=== PATIENT | male | born 1965 | race Caucasian/White ===

== ENCOUNTER 2017-06-22 17:14 | Emergency (ER) | payer OTHER ==
[~2017-06-22] VITALS: Ht 175.3 cm; Wt 100.0 kg
[~2017-06-22 17:14] MED LIST: ALBU18HF INH; ALPR2TAB6 PO; CYCL10TA9 PO; FERR325T40 PO; GABA800T2 PO; LAMO25TA2 PO; ONDA4TAB9 PO; OXYC20TA4 PO; PANT40TA2 PO; PHEN100C11 PO; PRAZ2CAP2 PO; PROM25SU47 RECTAL; PROZ20 PO; TIOT18CA3 IH; ZIPR80CA2 PO; oxycodone PO
[2017-06-22 17:40] VITALS: BP 123/75; PULSE 86; RESP 16; O2SAT 97
--- NOTE | 2017-06-22 18:42 | ED.REPORT ---
HPI-Extremity Problem Lower Date of Service Jun 22, 2017 ED Provider:Leopoldo Hernandez MD The pt is a 52 y/o male w/ a hx of bipolar disorder, HTN, and depression, presenting to the ED due to bilateral great toe swelling onset 5 days ago. He reports the L side being worse than the R and feels like the nails are going to pop off. He has tried Aleve, ice, and soaking them and nothing has decreased the pain or swelling. They do not itch. The pt reports wearing too small of shoes but no other trauma. The pt also reports having a seizure yesterday and would like a refill of his Dilantin medication. Nursing Notes Stated Complaint: BIG TOE INFECTION Chief Complaint: Bilateral great toe pain Nursing Notes Reviewed: Yes ([employer], [employer] reconciled) Allergies: Coded Allergies: Penicillins (Verified Allergy, Severe, Anaphylaxis, 07/05/16) aspirin (Verified Allergy, Severe, Anaphylaxis, 07/05/16) bupropion HCl (Verified Allergy, Severe, Seizures, 07/05/16) haloperidol (Verified Allergy, Severe, Seizures, 07/05/16) ibuprofen (Verified Allergy, Severe, contraindicated with pancreatitis, ) tramadol (Verified Allergy, Severe, Seizures, 07/05/16) prednisone (Verified Allergy, Intermediate, swelling, 06/22/17) NSAIDS (Non-Steroidal Anti-Inflamma (Verified Adverse Reaction, Severe, Contraindicated with pancreatitis, 07/05/16) acetaminophen (Verified Adverse Reaction, Severe, Contraindicated, 07/05/16 ) Scheduled ([oxycodone]) 5 MG PO Q 4hrs Ferrous Sulfate (Iron) 325 Mg Tablet 325 MG PO BID Fluoxetine (Prozac) 20 Mg Cap 60 MG PO DAILY Gabapentin (Gabapentin) 800 Mg Tablet 800 MG PO TID Lamotrigine (Lamictal) 25 Mg Tablet 50 MG PO BID Omeprazole (Omeprazole) 20 Mg Capsule.dr 20 MG PO DAILY Pantoprazole DR (Protonix) 40 Mg Tablet 40 MG PO BID Phenytoin Sodium ER (Dilantin) 100 Mg Capsule 300 MG PO BID Phenytoin Sodium Extended (Phenytoin Sodium Extended) 100 Mg Capsule 300 MG PO BID Prazosin (Prazosin) 2 Mg Capsule 2 MG PO HS Tiotropium [place] (Spiriva) 18 Mcg Cap.w.dev 18 MCG IH DAILY Ziprasidone (Geodon) 80 Mg Capsule 80 MG PO BID Scheduled PRN Albuterol Sulfate (Ventolin HFA Inhaler) 200 Puff/18 Gm Inhaler 2 PUFF INH Q4 PRN PRN For Wheezing Alprazolam (Alprazolam) 2 Mg Tablet 2 MG PO Q8HR PRN PRN For Anxiety Cyclobenzaprine (Cyclobenzaprine) 10 Mg Tablet 10 MG PO TID PRN PRN For Pain Ondansetron ODT (Zofran ODT) 4 Mg Tablet 4 MG PO Q4H PRN PRN For Nausea Promethazine Supp (Promethazine Supp) 25 Mg Supp 25 MG RECTAL Q4HR PRN PRN For Nausea oxyCODONE (oxyCODONE) 20 Mg Tablet 20 MG PO BID PRN PRN For Pain oxyCODONE (oxyCODONE) 5 Mg Tablet 5 MG PO TID PRN PRN For Pain General Time Seen by MD: 18:40 Chief Complaint Other (bilateral great toe pain ) Hx Obtained From: Patient Arrived By: Walk-in Onset Occurred: 5 days ago Symptom Duration: Since onset Recent Healthcare: No recent doctor visit, No recent hospitalization Similar Sx Previous: No Past Medical History Past Medical History Anemia Multiple psychiatric disorders: bipolar, possible schizophrenia, antisocial personality disorder, anxiety, PTSD Several suicide attempts Recurrent pancreatitis with alcohol abuse Hepatitis C Chronic low back pain (chonic oxycodone) Sleep apnea Seizures Reports: Asthma, COPD, GERD, Hypertension, Mental illness Reports: Depression, Migraines, Seizure disorder Past Surgical History Right hip surgery Right shoulder surgery Spincterotomy Low back surgery Family History Noncontributory Smoking History Never Smoker Social History Alcohol Use: In recovery Drug Use: THC Other Social History: Homeless Ambulatory Status Independent Review of Systems Bilat great toe pain and swelling Skin: Denies Itching Complete sys rev & neg: except as marked. Physical Exam Initial Vital Signs Vital Signs (First) Date Time Temp Pulse Resp B/P Pulse Ox O2 Delivery O2 Flow Rate FiO2 06/22/17 17:40 36.9 86 16 123/75 97 Room Air Initial VS: Reviewed, Vital signs normal General/Constitutional: Well-developed, Well-nourished Head / Eyes: Atraumatic, Normocephalic, PERRL ENT: Mucous membranes moist, Conjunctiva normal, No scleral icterus Neck: Supple, Non-tender, Full range of motion Respiratory: Breath sounds normal, Clear to auscultation, No respiratory distress Cardiovascular: Regular rate & rhythm, Heart sounds normal, Intact distal pulses Upper Extremities: Vascular intact, Neuro intact, No swelling, No tenderness Neurologic: Alert, Oriented, Nonfocal Psychiatric: Mood/affect normal, Behavior normal, Normal thought content Lower Extremity / Pelvis / MS: Full range of motion, No deformity Ankle / Foot: No deformity, Neurologic intact, Vascular intact Ecchymosis w/ trace swelling, w/o erythema, warmth, or signs of cellulitis in bilateral great toes No subungual hematoma No signs of gout Interpretation & Diagnostics Lab Results Interpretation Result Diagram: 06/22/17191406/22/171914 Test 06/22/17 19:15 White Blood Count 5.5th/mm3 (3.8-10.1) Red Blood Count 4.58mil/mm3 (4.40-5.80) Hemoglobin 14.3g/dL (13.8-17.2) Hematocrit 40.3% (41.0-50.0) Mean Corpuscular Volume 88.0fL (81-100) Mean Corpuscular Hemoglobin 31.2pg (27.0-35.0) Mean Corpuscular Hemoglobin Concent 35.5% (32.0-37.0) Red Cell Distribution Width 12.8% (12.3-15.4) Platelet Count 93bil/L (150-400) Neutrophils (%) (Auto) 53.1% (40-74) Lymphocytes (%) (Auto) 26.6% (14-46) Monocytes (%) (Auto) 12.5% (4-12) Eosinophils (%) (Auto) 6.9% (0-5) Basophils (%) (Auto) 0.5% (0-3) Sodium Level 141mEq/L (134-144) Potassium Level 4.4mEq/L (3.5-5.2) Chloride Level 102mEq/L (97-108) Carbon Dioxide Level 22mmol/L (18-29) Blood Urea Nitrogen 8mg/dL (6-24) Creatinine 0.66mg/dL (0.76-1.27) Estimat Glomerular Filtration Rate 135mL/min (>59) Glucose Level 85mg/dL (60-99) Calcium Level 9.2mg/dL (8.5-10.1) Magnesium Level 2.1mg/dL (1.6-2.6) Total Bilirubin 0.2mg/dL (0.0-1.2) Aspartate Amino Transf (AST/SGOT) 37U/L (0-50) Alanine Aminotransferase (ALT/SGPT) 41U/L (0-44) Alkaline Phosphatase 76U/L (25-150) Total Protein 7.2g/dL (6.4-8.4) Albumin 4.1g/dL (3.4-5.0) Lipase 146U/L (13-60) Phenytoin (Dilantin) Level < 0.8uG/mL (10.0-20.0) Lab Results Interpretation: CBC mild non-specific thrombocytopenia CMP normal, lipase marginally elevated X-Ray Interpretation Xray Interpretation: IMPRESSION: No bony abnormality is seen. Soft tissue swelling around the plantar aspect of the distal phalanx of the left great toe is present. Dictated by: Khalif Nguyen M.D. on 06/22/2017 at 19:41 Approved by: Khalif Nguyen M.D. on 06/22/2017 at 19:41 Study Performed: L toe Interpretation / Wet Read by: Interpret - Radiologist Xray Interpretation: IMPRESSION: Other than minimal osteoarthritic change of the metatarsophalangeal joint of the right great toe there is no abnormality seen. Dictated by: Khalif Nguyen M.D. on 06/22/2017 at 19:39 Approved by: Khalif Nguyen M.D. on 06/22/2017 at 19:40 Study Performed: R toe Interpretation / Wet Read by: Interpret - Radiologist Re-Eval/Medical Decision Med Decision/Clinical Course This is a 52-year-old male presents complaining of bilateral great toe pain. She has recently been in senior living was released as footwear was too tight to small, in over the past few days he has stoma walking and has developed great toe pain on each foot. Him in. He denies fevers chills or redness, there is had trace swelling of the toe. He has no prior history of gout. He is also requesting a med refill of his omeprazole and Dilantin which he has been under dosing because he is close to out. He reports normally taking 300 mg twice, he did have a seizure yesterday-but is not aware of any other specific trauma to the toes. On exam there is a small amount of ecchymosis at the base of each great toe nail although there is no subungual hematoma, there is normal range of motion, there is no redness or induration or signs of infection or abscess. There is no involvement of the metatarsal joint suspect gout or pseudogout. No findings of a septic joint. His foot exams otherwise normal bilaterally. Plain radiographs are negative. Nurses initiated labs were normal except for nonspecific thrombocytopenia. She received a single dose of oxycodone as he has an allergy profile limited alternatives. He does report he tolerates Naprosyn and took some before him. He has been discharged with a few oxycodone sparingly, continue Naprosyn, I written a refill for his Dilantin and omeprazole. Recommended follow-up. At this point I suspect contusions to the great toes from the improperly fitting footwear that he was using previously, I am not finding evidence of a more dangerous etiologies this time. Routine return precautions reviewed, patient's discharge ambulatory in stable condition Source of Hx: Old records Re-Evaluation/Progress : Time of Eval: 20:18 Re-Evaluation/Progress Note: Pt rechecked. Informed pt of plan for treatment. Pt understands and agrees with plan for treatment. F/U instructions and RTER warnings given. All questions addressed. Differential Diagnosis: Positive: Contusion, Negative: Abrasion, Achilles tendon rupture, Ankle dislocation, Cellulitis, Compartment syndrome, Fracture, Laceration, Nail bed laceration, Plantar warts, Puncture wound, Venous thromboembolism Counseled Regarding: Diagnosis, Lab results, Need for follow-up, When/why to return to ED Discharge & Departure Impression: Primary Impression: Contusion of toe of left foot Encounter type: initial encounter Toe: great toe Damage to nail status: with damage Qualified Code: S90.212A - Contusion of left great toe with damage to nail, initial encounter Additional Impressions: Contusion of toe of right foot Encounter type: initial encounter Toe: great toe Damage to nail status: without damage Qualified Code: S90.111A - Contusion of right great toe without damage to nail, initial encounter Medication refill Disposition: Home Discharge Condition All VS Reviewed: Yes Condition: Stable Additional Instructions: 1. I suspect the pain in your toes is from contusions from the footwear that was too small. I do not appreciate any visible signs of infection on your exams , and your blood tests were normal. No fractures were evident on x-ray. 2. Continue naprosyn. 3. You can take a short course of oxycodone to help with the pain over the next 1-2 days, but symptoms should be improving with time. NOTE: This medication contains a narcotic and causes drowsiness, no driving for at least 4 hours after taking. 4. Activities as tolerated. 5. IF you need a primary care provider, follow up with 6. I have written a refill of your dilantin at the 300mg twice a day dosing you report taking. Referrals: [facility] (PCP) [facility] Scribe Attestation Portions of this note were transcribed by Dmitri Ballard. I, Dr. Hernandez personally performed the history, physical exam and medical decision-making; I reviewed and confirmed the accuracy of the information in the transcribed note. copies to: [facility] Leopoldo Hernandez MD Jun 22, 2017 18:42 Dmitri Ballard Jun 22, 2017 20:21
--- NOTE | 2017-06-22 19:43 | DRSVH ---
PROCEDURE: X-RAY TOESS, TWO VIEWS INDICATIONS: pain TECHNIQUE: 3 views of the right great toe(s) acquired. COMPARISON: None. FINDINGS: Bones: No fractures or dislocations. No suspicious bony lesions. Soft tissues: No suspicious soft tissue densities. No abnormal soft tissue calcifications are seen. IMPRESSION: Other than minimal osteoarthritic change of the metatarsophalangeal joint of the right gr eat toe there is no abnormality seen. Dictated by: Khalif Nguyen M.D. on 06/22/2017 at 19:39 Approved by: Khalif Nguyen M.D. on 06/22/2017 at 19:40
--- NOTE | 2017-06-22 19:44 | DRSVH ---
PROCEDURE: X-RAY TOES, TWO VIEWS INDICATIONS: pain TECHNIQUE: 3 views of the left first toe(s) acquired. COMPARISON: None. FINDINGS: Bones: No fractures or dislocations. No suspicious bony lesions. Soft tissues: No suspicious soft tissue densities. Prominent soft tissue swelling is seen around th e distal phalanx of the left great toe. IMPRESSION: No bony abnormality is seen. Soft tissue swelling around the plantar aspect of the distal phalanx of the left great toe is present. Dictated by: Khalif Nguyen M.D. on 06/22/2017 at 19:41 Approved by: Khalif Nguyen M.D. on 06/22/2017 at 19:41
[2017-06-22 19:58] LABS: BASOPHILS % (AUTO) 0.5 % (0-3); EOSINOPHILS % (AUTO) 6.9 % (0-5); MONOCYTES % (AUTO) 12.5 % (4-12); Mean Corpuscular Hemoglobin 31.2 pg (27.0-35.0); NEUTROPHILS % (AUTO) 53.1 % (40-74); Platelet Count 93 bil/L (150-400)
[2017-06-22 20:12] LABS: Magnesium 2.1 mg/dL (1.6-2.6)
[2017-06-22] MEDS ORDERED: OXYC-530 PO (20:16)
[2017-06-22] MEDS ORDERED: PHN100C PO (20:16)
[2017-06-22] MEDS ORDERED: OMEP20CA11 PO (20:20)
[2017-06-22 20:40] VITALS: BP 127/76; PULSE 76; RESP 16; O2SAT 95
== END 2017-06-22 20:41 | disposition home or self-care (01) ==
LOC: SED 17:14
DX: S90.212A Contusion of left great toe with damage to nail, initial encounter (principal); S90.111A Contusion of right great toe without damage to nail, initial encounter; X58.XXXA Exposure to other specified factors, initial encounter; Y93.89 Activity, other specified; Y92.89 Other specified places as the place of occurrence of the external cause; Y99.8 Other external cause status; I10 Essential (primary) hypertension; K21.9 Gastro-esophageal reflux disease without esophagitis; J44.9 Chronic obstructive pulmonary disease, unspecified; F41.8 Other specified anxiety disorders; G43.909 Migraine, unspecified, not intractable, without status migrainosus; F31.9 Bipolar disorder, unspecified; Z76.0 Encounter for issue of repeat prescription; Z98.890 Other specified postprocedural states; Z59.0 Homelessness; Z88.0 Allergy status to penicillin; Z88.5 Allergy status to narcotic agent; Z88.6 Allergy status to analgesic agent; Z88.8 Allergy status to other drugs, medicaments and biological substances

== ENCOUNTER 2017-07-11 11:14 | Emergency (ER) | payer OTHER ==
[~2017-07-11] VITALS: Ht 175.3 cm; Wt 101.4 kg
[~2017-07-11 11:14] MED LIST changes: +OMEP20CA11 PO; +OXYC5TAB72 PO; +PHN100C PO
[2017-07-11 11:17] VITALS: BP 141/89; PULSE 81; RESP 16; O2SAT 97
--- NOTE | 2017-07-11 11:25 | ED.REPORT ---
HPI-Extremity Problem Lower Date of Service Jul 11, 2017 ED Provider: Tonja Esposito History of Present Illness: appointment with nayeli kaba on 07/23/2017. Saw a week ago, worse since then. doing espom salts, ice and heat. left great toe. denies dm. recently from doc. Staying in DOC housing. requesting refill of pain medications Nursing Notes Stated Complaint: POSSIBLE TOE INFECTION/LEFT FOOT Chief Complaint: Extremity Trauma Nursing Notes Reviewed: Yes Allergies: Coded Allergies: Penicillins (Verified Allergy, Severe, Anaphylaxis, 07/05/16) aspirin (Verified Allergy, Severe, Anaphylaxis, 07/05/16) bupropion HCl (Verified Allergy, Severe, Seizures, 07/05/16) haloperidol (Verified Allergy, Severe, Seizures, 07/05/16) ibuprofen (Verified Allergy, Severe, contraindicated with pancreatitis, ) tramadol (Verified Allergy, Severe, Seizures, 07/05/16) prednisone (Verified Allergy, Intermediate, swelling, 06/22/17) NSAIDS (Non-Steroidal Anti-Inflamma (Verified Adverse Reaction, Severe, Contraindicated with pancreatitis, 07/05/16) acetaminophen (Verified Adverse Reaction, Severe, Contraindicated, 07/05/16 ) Scheduled ([oxycodone]) 5 MG PO Q 4hrs Ferrous Sulfate (Iron) 325 Mg Tablet 325 MG PO BID Fluoxetine (Prozac) 20 Mg Cap 60 MG PO DAILY Gabapentin (Gabapentin) 800 Mg Tablet 800 MG PO TID Lamotrigine (Lamictal) 25 Mg Tablet 50 MG PO BID Omeprazole (Omeprazole) 20 Mg Capsule.dr 20 MG PO DAILY Pantoprazole DR (Protonix) 40 Mg Tablet 40 MG PO BID Phenytoin Sodium ER (Dilantin) 100 Mg Capsule 300 MG PO BID Phenytoin Sodium Extended (Phenytoin Sodium Extended) 100 Mg Capsule 300 MG PO BID Prazosin (Prazosin) 2 Mg Capsule 2 MG PO HS Tiotropium [place] (Spiriva) 18 Mcg Cap.w.dev 18 MCG IH DAILY Ziprasidone (Geodon) 80 Mg Capsule 80 MG PO BID Scheduled PRN Albuterol Sulfate (Ventolin HFA Inhaler) 200 Puff/18 Gm Inhaler 2 PUFF INH Q4 PRN PRN For Wheezing Alprazolam (Alprazolam) 2 Mg Tablet 2 MG PO Q8HR PRN PRN For Anxiety Cyclobenzaprine (Cyclobenzaprine) 10 Mg Tablet 10 MG PO TID PRN PRN For Pain Ondansetron ODT (Zofran ODT) 4 Mg Tablet 4 MG PO Q4H PRN PRN For Nausea Promethazine Supp (Promethazine Supp) 25 Mg Supp 25 MG RECTAL Q4HR PRN PRN For Nausea oxyCODONE (oxyCODONE) 20 Mg Tablet 20 MG PO BID PRN PRN For Pain oxyCODONE (oxyCODONE) 5 Mg Tablet 5 MG PO TID PRN PRN For Pain General Time Seen by MD: 11:21 Chief Complaint Toe injury left 1 Hx Obtained From: Patient Past Medical History Past Medical History Anemia Multiple psychiatric disorders: bipolar, possible schizophrenia, antisocial personality disorder, anxiety, PTSD Several suicide attempts Recurrent pancreatitis with alcohol abuse Hepatitis C Chronic low back pain (chonic oxycodone) Sleep apnea Seizures Reports: Asthma, COPD, GERD, Hypertension, Mental illness Reports: Depression, Migraines, Seizure disorder Past Surgical History Right hip surgery Right shoulder surgery Spincterotomy Low back surgery Family History Noncontributory Smoking History Never Smoker Social History Alcohol Use: In recovery Drug Use: THC Other Social History: Homeless Occupation in doc housing. 07/11/2017 Ambulatory Status Independent Review of Systems Basic Review of Systems Eyes: Vision NL, No discharge : No dysuria, No frequency Psychiatric: Normal thought content Physical Exam Initial Vital Signs Vital Signs (First) Date Time Temp Pulse Resp B/P Pulse Ox O2 Delivery O2 Flow Rate FiO2 07/11/17 11:17 36.7 81 16 141/89 97 Room Air Initial VS: Reviewed, Vital signs normal General/Constitutional: Well-developed, Well-nourished Respiratory: Breath sounds normal, Clear to auscultation, No respiratory distress Psychiatric: Mood/affect normal, Behavior normal, Normal thought content Lower Extremity / Pelvis / MS: Atraumatic, Inspection NL, Full range of motion , No swelling, Non-tender left great toe has small fibrin clot on lateral aspect of toenail base. No erthyma, no swelling. no discharge. sensation intact distally, cap refill less than 2 sec. no streaking noted General/Constitutional: Awake, Alert, No acute distress, Well appearing, Well developed, Well hydrated Respiratory / Chest: Atraumatic, Breath sounds NL, Breath sounds = bilat, No respiratory distress Cardiovascular: Heart rate NL, Regular rhythm, Heart sounds NL, No gallop Head / Eyes: Atraumatic, Normocephalic, PERRL Re-Eval/Medical Decision Med Decision/Clinical Course 52 year old male presents for recheck of left great toe pain. Seen about 10 days ago. Presentation is underwhelming, work up 10 days ago was negative. Denies any re injury. Patient requesting refill of percocet, needs a prescription to have in DOC housing. Discussed with Dr. Hernandez. No sign of infection. Referred to Dr. Luke. Patient will call and schedule follow up. No sign of osteomylitis or active infection Discharge & Departure Impression: Primary Impression: Toe pain, left Disposition: Home Additional Instructions: Use bactroban to the site with lidocaine . The 2 medications will help with possible infection and pain. Elevate as much as possible. Use naprosyn in the am and pm for any discomfort. Please call Dr. Luke for a follow up appointment. Let them know you have been seen in the ER for this already and need to see Dr. Luke. Referrals: Nayeli Kaba PA-C, Anisa S DPM EDSupervising Provider for APC: Leopoldo Hernandez MD copies to: Nayeli Kaba PA-C; Laura Luke DPM, Sue ARNP Jul 11, 2017 11:25
[2017-07-11] MEDS ORDERED: Mupirocin 2% 22 Gm Ointment TOPICAL ONE (11:45)
[2017-07-11] MEDS ORDERED: Lidocaine 2% 5 mL Urojet Topical Jelly Syringe MUC_MEMBRM ONE (11:45)
== END 2017-07-11 12:34 | disposition home or self-care (01) ==
LOC: SED 11:14
DX: M79.675 Pain in left toe(s) (principal); J44.9 Chronic obstructive pulmonary disease, unspecified; K21.9 Gastro-esophageal reflux disease without esophagitis; I10 Essential (primary) hypertension; F41.8 Other specified anxiety disorders; G43.909 Migraine, unspecified, not intractable, without status migrainosus; Z98.890 Other specified postprocedural states; Z59.0 Homelessness; Z88.0 Allergy status to penicillin; Z88.5 Allergy status to narcotic agent; Z88.6 Allergy status to analgesic agent; Z88.8 Allergy status to other drugs, medicaments and biological substances